=== PATIENT | male | born 1995 | race Caucasian/White ===

== ENCOUNTER 2021-01-07 13:52 | Emergency (ER) | payer OTHER ==
--- NOTE | 2021-01-07 15:03 | EDM.PDOC ---
ED HPI GENERAL MEDICAL PROBLEM - General Chief Complaint: Back Pain or Injury Stated Complaint: BACK INJURY AT WORK Time Seen by Provider: 01/07/21 13:55 Source of Information: Reports: Patient History Limitations: Reports: No Limitations - History of Present Illness INITIAL COMMENTS - FREE TEXT/NARRATIVE: HISTORY AND PHYSICAL: History of present illness: The patient is a 25-year-old male who presents to the emergency room with complaints of bilateral lower back pain and numbness/tingling of his left shoulder and finger since . 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 The patient states that he felt fine after that and was able to work all day without any difficulties. He then woke up on morning and had some left upper shoulder arm numbness tingling along with some finger tingling in his left. The patient states that he went to work and the sensation went away and he had no back pain and he was feeling fine. He states that when he woke up on Saturday he felt a little more stiff and again had the tingling sensation in his shoulder left shoulder and left fingers. After working for a few hours then cessation again went away. The patient states that he slept in until about 9:00 on Saturday and had increased stiffness but decreased tingling in his left shoulder and fingertips. Patient has not taken anything [id number] for this. Patient denies any fever, chills, headache, change in vision, syncope or near syncope. Denies any chest pain, back pain, shortness of breath or cough. Denies any abdominal pain, nausea, vomiting, diarrhea, constipation or dysuria. Has not noted any blood in urine or stool. Patient has been eating and drinking appropriately. Review of systems: As per history of present illness and below otherwise all systems reviewed and negative. Past medical history: As per history of present illness and as reviewed below otherwise noncontributory. Surgical history: As per history of present illness and as reviewed below otherwise noncontributory. Social history: See social history for further information Family history: As per history of present illness and as reviewed below otherwise noncontributory. Physical exam: General: Well developed and well nourished. Alert and orientated x 3. Nontoxic in appearance and in no acute distress. Vital signs are stable and have been reviewed by me. Nursing notes were reviewed. HEENT: Atraumatic, normocephalic, pupils equal and reactive bilaterally, negative for conjunctival pallor or scleral icterus, mucous membranes moist, TMs normal bilaterally, throat clear, neck supple, nontender, trachea midline. No drooling or trismus noted. No meningeal signs. No hot potato voice noted. Lungs: Clear to auscultation bilaterally. No wheezes, rales, or rhonchi. Chest nontender. Normal work of breathing, no accessory muscles used. Heart: S1S2, regular rate and rhythm without overt murmur, gallops, or rubs. No JVD. No peripheral edema Abdomen: Soft, nondistended, nontender. Normoactive bowel sounds. Negative for masses or costovertebral tenderness. Back: Negative straight leg raise. Neuro intact. No tenderness on spinal processes. Tenderness lower bilateral latissimus dorsi muscle. Skin: Intact, warm, dry. No lesions or rashes noted. Hematologic: No petechiae or purpra. Mucosa appropriate color and normal nail bed color and refill. Extremities: Atraumatic, moves all extremities per self without difficulty or deficits, negative for cords or calf pain. Neurovascular unremarkable. Neuro: Awake, alert, oriented. Cranial nerves II through XII unremarkable. Cerebellum unremarkable. Motor and sensory unremarkable throughout. Exam nonfocal. Psychiatric: Mood and affect are appropriate. Normal thought process. Answering questions appropriately. Notes: *This patient was seen and evaluated during the 2019 SARS-CoV-2 novel coronavirus pandemic period. Community viral transmission is ongoing at time of this encounter and the emergency department is operating under pandemic response procedures. As stated above the patient is a 25-year-old male who presents to the emergency room with complaints of bilateral lower back pain and left shoulder and fingertip tingling. The pain started on after pulling 120 pound bar in a squat position on Saturday. The patient had back stiffness with left shoulder finger tip tingling on , Saturday and Saturday. Today the pain is somewhat better but the patient is concerned. The patient's exam was significant for tenderness lower bilateral latissimus dorsi muscle and tingling the left shoulder and finger tips. The patient was educated on proper body mechanics and the possible need for a follow-up physical therapy appointment. For today's purposes I will start the patient on prednisone 40 mg once daily for 5 days and Norflex 100 mg twice daily for 10 days. I have given a patient a return to work note for January with the provision that he is able to tolerate the work. I have instructed that if the patient is unable to tolerate the work he needs to follow-up with a primary care or occupational health for physical therapy. The patient is agreeable with this discharge plan. I have talked with the patient about today's findings, in addition to providing specific details for plan of care. Reassessment at the time of disposition demonstrates that the patient is in no acute distress. The patient is stable for discharge, counseling was provided and we discussed in great detail signs and symptoms that would prompt them to return to the Emergency Department. Medication, follow up and supportive care measures were reviewed and discussed. Voices understanding and is agreeable to plan of care. Denies any further questions or concerns at this time. Prescription:prednisone 40 mg daily for 5 days and Norflex 100 mg twice daily for 10 days Impression: Nuclear pain left arm and lower back pain acute Plan: 1. You were evaluated today on an emergent basis. Your low back pain and your left arm numbness/tingling was evaluated with an exam. I am treating your symptoms with prednisone 40 mg daily for 5 days and Norflex 100 mg twice daily for 10 days. I am giving you 2 days off work and if you go back and are unable to work without pain you will need to follow-up with a physical therapy session. I am going to refer you to a primary care or your work will refer you to occupational health. If you continue to have numbness tingling or this gets worse or you lose function of your bladder please seek emergency care. Ensure that you are continuing to move. I suggest that you take a warm bath or warm shower and then do some mild stretching daily. Do not take any NSAIDs such as Motrin or Aleve. 2. You can take Tylenol as needed for pain and fever management. 3. We encourage you to follow up with your primary care provider and/or recommended specialist in the next few days for re-evaluation and further care/management. 4. If your symptoms should worsen, new symptoms develop or any of the signs and symptoms we discussed should arise please return to the emergency room or call 911 (if needed). Definitive disposition and diagnosis as appropriate pending reevaluation and review of above. - Related Data Allergies Allergy/AdvReac Type Severity Reaction Status Date / Time No Known Allergies Allergy Verified 01/07/21 14:39 Home Meds: Home Meds Orphenadrine [Norflex] 100 mg PO BID 10 Days #20 tab 01/07/21 [Rx] predniSONE [Prednisone] 40 mg PO DAILY 5 Days #10 tablet 01/07/21 [Rx] Past Medical History - Past Health History Medical/Surgical History: Denies Medical/Surgical History ED ROS GENERAL - Review of Systems Review Of Systems: Comprehensive ROS is negative, except as noted in HPI. ED EXAM,LOWER BACK PAIN/INJURY - Physical Exam Exam: See Below (See dictation) Course - Vital Signs Last Recorded V/S: Last Vital Signs Temp 98.0 F 01/07/21 14:26 Pulse 73 01/07/21 14:26 Resp 18 01/07/21 14:26 BP 120/80 01/07/21 14:26 Pulse Ox 97 01/07/21 14:26 Departure - Departure Time of Disposition: 15:02 Disposition: Home, Self-Care 01 Condition: Good Clinical Impression: Radicular pain in left arm Back pain Qualifiers: Back pain location: low back pain Chronicity: acute Back pain laterality: bilateral Sciatica presence: without sciatica Qualified Code(s): M54.5 - Low back pain - Discharge Information *PRESCRIPTION DRUG MONITORING PROGRAM REVIEWED*: Not Applicable *COPY OF PRESCRIPTION DRUG MONITORING REPORT IN PATIENT JEAN CARLOS: Not Applicable Prescriptions: Orphenadrine [Norflex] 100 mg PO BID 10 Days #20 tab predniSONE [Prednisone] 40 mg PO DAILY 5 Days #10 tablet Instructions: Back Injury Prevention, [id number], Muscle Strain, [id number] Referrals: PCP,None [Primary Care Provider] - Forms: ED Department Discharge Additional Instructions: The following information is given to patients seen in the emergency department who are being discharged to home. This information is to outline your options for follow-up care. We provide all patients seen in our emergency department with a follow-up referral. The need for follow-up, as well as the timing and circumstances, are variable depending upon the specifics of your emergency department visit. If you don't have a primary care physician on staff, we will provide you with a referral. We always advise you to contact your personal physician following an emergency department visit to inform them of the circumstance of the visit and for follow-up with them and/or the need for any referrals to a consulting specialist. The emergency department will also refer you to a specialist when appropriate. This referral assures that you have the opportunity for follow-up care with a specialist. All of these measure are taken in an effort to provide you with optimal care, which includes your follow-up. Under all circumstances we always encourage you to contact your private physician who remains a resource for coordinating your care. When calling for follow-up care, please make the office aware that this follow-up is from your recent emergency room visit. If for any reason you are refused follow-up, please contact the [facility] Emergency Department at and asked to speak to the emergency department charge nurse. [facility] [address] [place] [id number] [place] [address] Plan: 1. You were evaluated today on an emergent basis. Your low back pain and your left arm numbness/tingling was evaluated with an exam. I am treating your symptoms with prednisone 40 mg daily for 5 days and Norflex 100 mg twice daily for 10 days. I am giving you 2 days off work and if you go back and are unable to work without pain you will need to follow-up with a physical therapy session. I am going to refer you to a primary care or your work will refer you to occupational health. If you continue to have numbness tingling or this gets worse or you lose function of your bladder please seek emergency care. Ensure that you are continuing to move. I suggest that you take a warm bath or warm shower and then do some mild stretching daily. Do not take any NSAIDs such as Motrin or Aleve. 2. You can take Tylenol as needed for pain and fever management. 3. We encourage you to follow up with your primary care provider and/or recommended specialist in the next few days for re-evaluation and further care/management. 4. If your symptoms should worsen, new symptoms develop or any of the signs and symptoms we discussed should arise please return to the emergency room or call 911 (if needed). Sepsis Event Note (ED) - Evaluation Sepsis Screening Result: No Definite Risk - Focused Exam Vital Signs: Vital Signs Temp Pulse Resp BP Pulse Ox 01/07/21 14:26 98.0 F 73 18 120/80 97
== END 2021-01-07 15:15 | disposition home or self-care (01) ==
LOC: MW.ED 13:52
DX: M54.16 Radiculopathy, lumbar region (principal)
CPT/HCPCS: 99283

== ENCOUNTER 2021-12-31 11:00 | Emergency (ER) | payer OTHER | END 2021-12-31 12:21 | disposition home or self-care (01) | LOC: MW.ED 11:00 | DX: L24.0 Irritant contact dermatitis due to detergents (principal); J06.9 Acute upper respiratory infection, unspecified | CPT/HCPCS: 99283 ==

== ENCOUNTER 2022-02-03 03:19 | Emergency (ER) | payer OTHER ==
[2022-02-03] MEDS ORDERED: Sodium Chloride 0.9% 1,000 ML IV ONE (03:49)
[2022-02-03] MEDS ORDERED: Metoprolol Tartrate 5 MG/5 ML SDV IVPUSH ONE (04:43)
[2022-02-03 04:49] LABS: CARBON DIOXIDE,CO2 27.8 mmol/L (21.0-32.0); POTASSIUM,K 4.2 mmol/L (3.5-5.1)
[2022-02-03] MEDS ORDERED: Iopamidol 755 MG/ML 500 ML Multipack Bottle IVPUSH ONE (06:06)
== END 2022-02-03 07:15 | disposition home or self-care (01) ==
LOC: MW.ED 03:19
DX: R00.0 Tachycardia, unspecified (principal); Z87.891 Personal history of nicotine dependence; Z20.822 Contact with and (suspected) exposure to COVID-19
CPT/HCPCS: 36415; 71045; 71275; 80053; 83735; 84439; 84443; 84484; 85025; 85379; 85610; 85730; 87635; 93005; 96374; 99285; J3490; J7030; Q9967; U0002

== ENCOUNTER 2022-02-04 03:50 | Emergency (ER) | payer OTHER | END 2022-02-04 04:04 | disposition home or self-care (01) | LOC: MW.ED 03:50 | DX: G47.00 Insomnia, unspecified (principal) | CPT/HCPCS: 99283 ==

== ENCOUNTER 2024-04-29 20:14 | Emergency (ER) | payer SELFPAY ==
[2024-04-29] MEDS ORDERED: Sodium Chloride 0.9% 10 ML Syringe FLUSH PRN (20:32)
[2024-04-29] MEDS ORDERED: Sodium Chloride 0.9% 2.5 ML Syringe FLUSH PRN (20:32)
[2024-04-29 20:57] LABS: HEMATOCRIT 46.1 % (42.0-52.0); HEMOGLOBIN 16.1 g/dL (14.0-18.0); MEAN CORPUSCULAR HGB CONC 34.9 g/dL (32.0-36.0); MEAN CORPUSCULAR VOLUME 82.9 fL (83.0-99.0); MEAN PLATELET VOLUME 9.7 fL (9.4-12.4); PLATELET COUNT,PLT 270 K/uL (150-400); RED BLOOD CELL COUNT 5.56 M/uL (4.52-5.90); WHITE BLOOD CELL COUNT,WBC 12.38 K/uL (3.9-11.3)
[2024-04-29] MEDS: Sodium Chloride 0.9% 1,000 ML IV ONE (21:16)
[2024-04-29] MEDS: Ketorolac 30 MG/ML SDV IVPUSH ONE (21:17)
[2024-04-29] MEDS: Meclizine 25 MG Tab PO ONE (21:17)
[2024-04-29 21:19] LABS: EOSINOPHILS ABSOLUTE MAN 0.12 K/uL (0.00-0.45); EOSINOPHILS PERCENT MAN 1 % (0-6); LYMPHOCYTES ABSOLUTE MAN 5.32 K/uL (1.00-4.80); LYMPHOCYTES PERCENT MAN 43 % (24-44); MONOCYTES ABSOLUTE MAN 0.62 K/uL (0.00-0.80); MONOCYTES PERCENT MAN 5 % (0-8); SEG NEUTROPHILS ABSOLUTE MAN 6.31 K/uL (1.80-7.70); SEG NEUTROPHILS PERCENT MAN 51 % (41-71)
[2024-04-29 21:29] LABS: A/G RATIO 1.1 (0.9-1.6); BILIRUBIN TOTAL 0.2 mg/dL (0.2-1.0); CALCIUM 9.1 mg/dL (8.5-10.1); CREATININE 1.4 mg/dL (0.8-1.3); EST CRCL DRUG DOSING (CG) 84.68 mL/min; MAGNESIUM 2.1 mg/dL (1.8-2.4); POTASSIUM,K 3.5 mmol/L (3.5-5.1); PROTEIN TOTAL,TP 7.6 g/dL (6.4-8.2)
== END 2024-04-29 23:00 | disposition home or self-care (01) ==
LOC: MW.ED 20:14
DX: R42 Dizziness and giddiness (principal); Z75.8 Other problems related to medical facilities and other health care
CPT/HCPCS: 36415; 70450; 80053; 82947; 83735; 85025; 96361; 96374; 99284; A9270; J1885; J7030; 99283